=== PATIENT | male | born 1970 | race Caucasian/White ===

== ENCOUNTER 2017-06-19 15:34 | Outpatient (CLI) | payer OTHER | END 2017-06-19 15:35 | disposition home or self-care (01) | LOC: DTY/OP 15:34 | PROVIDERS: ATTEND Surgery | DX: E66.01 Morbid (severe) obesity due to excess calories (principal) | CPT/HCPCS: 97802 ==

== ENCOUNTER 2017-09-25 14:58 | Inpatient (IN) | payer OTHER ==
[2017-10-01 11:54] VITALS: BMI 42.5
[2017-10-02] MEDS ORDERED: Bupivacaine 0.25% HCL 30 ML VIAL ONE ×2 (06:47→08:02)
[2017-10-02] MEDS ORDERED: Lidocaine 2% w/Epinephrine 1:200K 20 ML VIAL ONE (06:47)
[2017-10-02] MEDS ORDERED: CEFAZOLIN/Water 2 GM/20 ML SYRINGE ONE (07:02)
[2017-10-02] MEDS ORDERED: Heparin 5,000 UNITS/ML VIAL ONE (07:02)
[2017-10-02] MEDS ORDERED: Midazolam HCl 2 mg/2 ml Vial ONE ×2 (07:16→07:17)
[2017-10-02] MEDS ORDERED: Scopolamine 1.5 mg/72 hour Patch ONE (07:16)
[2017-10-02] MEDS ORDERED: Fentanyl 100 MCG/2 ML VIAL ONE (07:17)
[2017-10-02] MEDS ORDERED: HYDROmorphone 0.5 MG/0.5 ML SYRINGE ONE ×4 (07:18→09:54)
[2017-10-02] MEDS ORDERED: Promethazine HCl 25 MG/ML VIAL SLOW IVP PRN (07:23)
[2017-10-02] MEDS ORDERED: HYDROmorphone 10 mg/100 ml CADD IVPB PRN (07:23)
[2017-10-02] MEDS ORDERED: Zolpidem Tartrate 5 MG TAB PO PRN (07:23)
[2017-10-02] MEDS ORDERED: Naloxone HCl 0.4 mg/ml Vial IV PRN (07:23)
[2017-10-02] MEDS ORDERED: diphenhydrAMINE 50 MG/ML VIAL IM PRN (07:23)
[2017-10-02] MEDS ORDERED: Ondansetron HCl/PF 4 MG/2 ML Vial IVP PRN ×4 (07:23→09:04)
[2017-10-02] MEDS ORDERED: HYDROmorphone 2 MG/ML VIAL SLOW IVP PRN (07:23)
[2017-10-02] MEDS ORDERED: diphenhydrAMINE 50 MG/ML VIAL IVP PRN ×3 (07:23→09:04)
[2017-10-02] MEDS ORDERED: Promethazine HCl 25 MG/ML VIAL IM PRN ×4 (07:23→09:04)
[2017-10-02] MEDS ORDERED: diphenhydrAMINE 25 MG CAP PO PRN (07:23)
[2017-10-02] MEDS ORDERED: Meperidine HCl/PF 25 MG/ML VIAL SLOW IVP PRN (07:23)
[2017-10-02] MEDS ORDERED: Communication Order-Pharmacy FS SCH (07:30)
--- NOTE | 2017-10-02 07:30 | HP ---
CHIEF COMPLAINT: Morbid obesity. HISTORY: The patient is a 47-year-old male who has been overweight for many years and attempted [facility] weight loss programs without success. He is here for sleeve gastrectomy. PAST MEDICAL HISTORY: Sleep apnea, hypertension. PAST SURGICAL HISTORY: Appendectomy. MEDICATIONS: Losartan, diltiazem, aspirin, Bactrim. ALLERGIES: No known drug allergies. FAMILY HISTORY: Father has heart disease. Mother has . SOCIAL HISTORY: He is . No tobacco, occasional alcohol. PHYSICAL EXAMINATION: VITAL SIGNS: Height 6 feet 2 inches, weight 347, body mass index 44.5. Blood pressure 148/87, pulse 65 GENERAL: He is a well-developed, well-nourished male in no apparent distress. HEENT: Good hair growth. No alopecia. Pupils equal, round, and reactive. Extraocular motor intact . Pharynx clear. Good dentition. NECK: Supple, no thyroid masses, no carotid bruits. LUNGS: Clear. HEART: Regular rate and rhythm. ABDOMEN: Soft, nontender, good bowel sounds. No hernias. EXTREMITIES: Good pulses. No pedal edema. ASSESSMENT: Morbid obesity with comorbidities. PLAN: Laparoscopic sleeve gastrectomy. CONSENT: I have discussed the planned procedure as well as risk of bleeding, infection, injury to es ophagus, spleen, loops of bowel, need to open, leakage from staple line. He understands and gives in formed consent.
[2017-10-02] MEDS ORDERED: Hydrocodone-Acetamin 15 ML UDCUP PO PRN ×2 (09:03→09:04)
[2017-10-02] MEDS ORDERED: Dextrose 5% in Water 1,000 ML IV PRN ×2 (09:03→09:04)
[2017-10-02] MEDS ORDERED: Dextrose 50% Abboject 50 ML SYRINGE SLOW IVP PRN ×2 (09:03→09:04)
[2017-10-02] MEDS ORDERED: hydrALAZINE 20 MG/ML VIAL SLOW IVP PRN ×2 (09:03→09:04)
[2017-10-02] MEDS ORDERED: Morphine 4 MG/ML Carpuject SLOW IVP PRN (09:04)
--- NOTE | 2017-10-02 09:26 | OP ---
DATE OF PROCEDURE: 10/02/2017 PREOPERATIVE DIAGNOSIS: Morbid obesity. SURGEON: Nguyễn Lerma M.D. PROCEDURE: Laparoscopic sleeve gastrectomy with esophagogastroscopy. INDICATIONS: A 47-year-old male, morbidly obese, who has attempted multiple weight loss programs wit hout success. FINDINGS: A 38 Macedonian bougie used. PROCEDURE IN DETAIL: After informed consent was obtained, the patient was taken to the operating rossy m and given general endotracheal anesthesia. He was placed in the supine position. The abdomen was prepped and draped in the usual fashion. Local anesthesia infiltrated subcutaneously and deep. A 12 mm incision was performed approximately 8 inches below the xiphoid slightly to the left. Veress nee dle inserted. Drop test performed. Pneumoperitoneum was created to a volume of 2 liters of carbon d ioxide. Utilizing a bladeless 12 mm trocar and 0 degree laparoscope, direct visual entry into the ab dominal cavity was performed. Pneumoperitoneum was created to a pressure of [address] aced in steep reverse Trendelenburg position. Nathansen liver retractor inserted. Left lobe of live r retracted superiorly. Pylorus identified and a 12 mm port placed on the right beneath it and two 1 2s placed left subcostal. The omentum was taken off the greater curvature 5 cm from the pylorus util izing the LigaSure. Short gastrics divided with LigaSure and left crura defined with the LigaSure. A 38-Macedonian bougie inserted directed into the antrum. The linear 60 mm green load stapler used to di vide the antrum to the bougie, another green along the bougie, and then two golds along the bougie, a nd a series of blues through the angle of His. Intraoperative endoscopy was performed. The video en doscope inserted under direct vision and advanced into the sleeve. Staple line inspected. There was no bleeding. Staple line then tested by inflating the new stomach with pressurized air and water. There was no air leak. Stomach decompressed. Scope removed. The remnant stomach removed from the a bdomen through the left lateral port site. The fascia closed with 0 Vicryl suture and the GraNee nee dle. Trocars and retractors were removed. Skin closed with interrupted 4-0 Rapide. Dermabond appli ed. The patient tolerated the procedure well and transferred to recovery in good condition. Sponge and needle count verified correct x2.
[2017-10-02] MEDS ORDERED: D5 1/2 NS w/20 mEq KCL 1,000 ML ONE (09:41)
[2017-10-02] MEDS: D5 1/2 NS w/20 mEq KCL 1,000 ML IV SCH ×2 (10:59→17:50)
[2017-10-02] MEDS: Acetaminophen 1,000 MG in Premix Bag 1 BAG IVPB SCH ×2 (14:28→19:48)
[2017-10-02] MEDS: Ketorolac Tromethamine 30 MG/ML VIAL IVP SCH ×2 (14:28→19:48)
[2017-10-02] MEDS ORDERED: Lidocaine 1% PF 5 ML VIAL ONE (16:20)
[2017-10-02] MEDS ORDERED: Ondansetron HCl/PF 4 MG/2 ML Vial ONE (16:20)
[2017-10-02] MEDS ORDERED: Dexamethasone 20 MG/5 ML VIAL ONE (16:20)
[2017-10-02] MEDS ORDERED: Glycopyrrolate 0.2 MG/ML 5 ML SYRINGE ONE (16:20)
[2017-10-02] MEDS ORDERED: Propofol 200 MG/20 ML VIAL ONE (16:20)
[2017-10-02] MEDS ORDERED: Ketorolac Tromethamine 30 MG/ML VIAL ONE (16:20)
[2017-10-03] MEDS: D5 1/2 NS w/20 mEq KCL 1,000 ML IV SCH (01:52)
[2017-10-03] MEDS: Acetaminophen 1,000 MG in Premix Bag 1 BAG IVPB SCH ×2 (01:52→08:09)
[2017-10-03] MEDS: Ketorolac Tromethamine 30 MG/ML VIAL IVP SCH ×2 (03:51→08:10)
[2017-10-03 04:13] LABS: #Basophils 0.1 thou/uL (0.0-0.2); #Lymphocytes 1.1 thou/uL (1.20-3.40); #Monocytes 0.8 thou/uL (0.11-0.59); #Neutrophils 10.4 thou/uL (1.40-6.50); %Basophils 0.5 % (0.0-1.0); %Eosinophils 0.1 % (0.0-10.0); %Monocytes 6.2 % (0.0-10.0); %Neutrophils 84.2 % (42.0-75.0); Hemoglobin 13.3 g/dL (14.0-18.0); Mean Corpuscular HGB CONC 34.9 g/dL (32.0-36.0); Mean Corpuscular Hemoglobin 31.3 pg (27.0-31.0); Mean Corpuscular Volume 89.8 fl (80.0-94.0); Mean Platelet Volume 8.4 fL (7.4-10.4); Platelet Count 215 thou/uL (130-400); RBC Distribution Width 11.6 % (11.5-14.5); Red Blood Cell (RBC) Count 4.25 mill/uL (4.70-6.10); White Blood Cell (WBC) Count 12.4 thou/uL (4.8-10.8)
[2017-10-03 04:32] LABS: Anion Gap 12 mmol/L (10-20); BUN (Urea Nitrogen) 10 mg/dL (8.9-20.6); Calc. Creatinine Clearance 234 mL/min (70-130); Calcium 9.1 mg/dL (7.8-10.44); Carbon Dioxide 26 mmol/L (22-29); Chloride 106 mmol/L (98-107); Estimated GFR-MDRD Greater than 90; Glucose 126 mg/dL (70-105); Potassium 3.8 mmol/L (3.5-5.1); Sodium 140 mmol/L (136-145)
[2017-10-03] MEDS ORDERED: Enoxaparin Sodium 40 MG/0.4 ML SYRINGE SC SCH (08:00)
--- NOTE | 2017-10-03 08:51 | DIS ---
DISCHARGE DIAGNOSIS: Morbid obesity. PROCEDURES DURING ADMISSION: Laparoscopic sleeve gastrectomy, intraoperative esophagogastroscopy, po stoperative Gastrografin swallow. HOSPITAL COURSE: The patient was admitted, taken to the operating room where he underwent a sleeve g astrectomy. Postoperatively he has done well. The x-ray showed no abnormalities. He was started on liquids. He is tolerating liquids well. He is discharged home in good condition on hydrocodone and Zofran. He will follow up with me in 2 weeks.
[2017-10-03] MEDS ORDERED: Pantoprazole 40 MG VIAL IVP SCH ×2 (09:00)
--- NOTE | 2017-10-03 09:11 | RAD ---
UPPER GI SINGLE CONTRAST: Date: 10/03/17 HISTORY: Gastric sleeve surgery. Evaluate for leak. COMPARISON: None. FINDINGS: Patient was given 15 mL of Gastrografin. Multiple spot images in multiple obliquities were obtained. No evidence of leak. Contrast passed quickly through the stomach. IMPRESSION: No evidence of leak. POS: JOEY
[2017-10-03 12:22] VITALS: BP 118/76; TEMP 98.6
[2017-10-04] MEDS ORDERED: Enoxaparin Sodium 40 MG/0.4 ML SYRINGE SC SCH (09:00)
== END 2017-10-03 13:15 | disposition home or self-care (01) | DRG 621 ==
LOC: SURG A 10-02 05:52 → SJJU 10-02 09:47 → SURG A 10-02 11:47 → SJJU 10-02 11:53
PROVIDERS: ADMIT Surgery; ATTEND Surgery
PROC: 0DB64Z3 Excision of Stomach, Percutaneous Endoscopic Approach, Vertical (ICD-10-PCS; principal; 2017-10-02)
PROC: 0DJ08ZZ Inspection of Upper Intestinal Tract, Via Natural or Artificial Opening Endoscopic (ICD-10-PCS; 2017-10-02)
DX: E66.01 Morbid (severe) obesity due to excess calories (principal); G47.30 Sleep apnea, unspecified; I10 Essential (primary) hypertension; Z68.41 Body mass index [BMI] 40.0-44.9, adult; Z79.82 Long term (current) use of aspirin
CPT/HCPCS: 36415; 74241; 80048; 85025; 88307; 88312; 88341; 88342; 94760; C9113; J0131; J1100; J1170; J1644; J1650; J1885; J2001; J2250; J2405; J2704; J3010; S0020